=== PATIENT | male | born 1995 | race Caucasian/White ===

== ENCOUNTER 2018-11-04 08:25 | Emergency (ER) | payer OTHER, MEDICAID ==
[~2018-11-04] VITALS: Ht 177.8 cm; Wt 68.0 kg
[2018-11-04 08:25] VITALS: BP 108/72
--- NOTE | 2018-11-04 08:25 | NUR ---
ED Nurse Note: Pt came in due to seizure activity x 30 sec. Pt is under police custody and per uniform patrol police officer the pt is already in the station when he started to shake. No head trauma or LOC and police gradually brought pt on the ground for safety. Pt AAO x2, follows command with no respiratory distress. VSS. Seizure precautions are implemented (See Interventions).
[2018-11-04] MEDS ORDERED: LORazepam Inj 2mg/ml 1ml IV ONE (08:30)
--- NOTE | 2018-11-04 08:30 | NUR ---
ED Nurse Note: [employer] at the bed side.
--- NOTE | 2018-11-04 08:39 | Emergency Room Report ---
History of Present Illness General Chief Complaint: Seizure Source: Patient, Law Enforcement Present Illness HPI The patient is brought in by EMS after alleged seizure. Apparently he told police as he was being booked that he felt a seizure coming on. He slumped to the ground and had 10-15 seconds of decreased responsiveness. He returned to full orientation after that. There was no incontinence. There was no head trauma. The patient has a history of seizures and is supposed be taking Dilantin. He's been nauseated. He also is supposed be withdrawing from Klonopin and opiate use. He claims to be on Suboxone. He states that his last seizure was October 07. He claims he was hospitalized at that time at [facility] at [place]. H/O bipolar disorder - apparently not compliant with medications. He denies suicidal ideation. Patient denies fevers, chills, diarrhea, chest pain, abdominal pain. He has generalized body aches when he is withdrawing from the opiates. He is arrested for outstanding warrants, for sleeping in a car not belonging to him and possibly having bank cards not belonging to him. Allergies: Coded Allergies: AMOXICILLIN (Verified Allergy, Unknown, 11/04/18) PENICILLINS (Verified Allergy, Unknown, 11/04/18) Patient History Past Medical History: see triage record Social History: Reports: drug use; Denies: alcohol use Social History Narrative patient was in a car Reviewed Nursing Documentation: PMH: Agreed; PSxH: Agreed Nursing Documentation-PMH History Of Psychiatric Problem: Yes - Bipolar disorder Hx Seizures: Yes Review of Systems All Other Systems: negative except mentioned in HPI Physical Exam Vital Signs Date Time Temp Pulse Resp B/P (MAP) Pulse Ox O2 Delivery O2 Flow Rate FiO2 11/04/18 08:15 98.1 76 18 129/78 100 Room Air Sp02 EP Interpretation: reviewed, normal General Appearance: well appearing, no apparent distress, GCS 15, other - dishevelled Head: normocephalic, atraumatic Eyes: bilateral eye PERRL, bilateral eye EOMI, bilateral eye Scleral Injection ENT: moist mucus membranes - no lingual trauma, gingival inflammation Neck: supple, no bony tend Respiratory: lungs clear, normal breath sounds Cardiovascular #1: regular rate, rhythm Cardiovascular #2: 2+ radial (R) Gastrointestinal: normal inspection, normal bowel sounds, non tender, no mass, non-distended, scaphoid Musculoskeletal: back normal, normal range of motion, other - knee tenderness Neurologic: alert, medical data analyst III-XII nml as tested, motor strength/tone normal, DTRs symmetric, sensory intact, cerebellar normal, oriented - X2 Psychiatric: no suicidal/homicidal ideation, depressed affect Skin: warm/dry, other - dishevelled, abrasions - Patella bilaterally Medical Decision Making Diagnostic Impression: Primary Impression: Seizure-like activity Additional Impressions: Non compliance with medical treatment Substance abuse History of seizures ER Course Patient presents presents with alleged seizure. By description it sounds like probable pseudoseizure or near syncope. Evaluation will be with EKG and labs including Dilantin level. The patient will be given IV hydration and a dose of Ativan or waiting for results to come back. EKG without injury. Slightly elevated white count. Slightly elevated BUN. Slightly elevated CPK. Dilantin level none detected. The patient did not provide urine. Dilantin 500 mg was given IV and 400 mg by mouth. The patient was offered Zofran and Tylenol both of which she declined. He requested something for his gums. This is lidocaine was applied topically. No further seizure-like activity was observed. The patient was ambulatory and although complaining of discomfort was calm and resting. Patient stable for incarceration. Laboratory Tests Test 11/04/18 08:32 White Blood Count 11.1 K/UL (4.8-10.8) H Red Blood Count 4.66 M/UL (4.70-6.10) L Hemoglobin 14.8 G/DL (14.2-18.0) Hematocrit 44.3 % (42.0-52.0) Mean Corpuscular Volume 95 FL (80-99) Mean Corpuscular Hemoglobin 31.6 PG (27.0-31.0) H Mean Corpuscular Hemoglobin Concent 33.3 G/DL (32.0-36.0) Red Cell Distribution Width 12.4 % (11.6-14.8) Platelet Count 319 K/UL (150-450) Mean Platelet Volume 5.7 FL (6.5-10.1) L Neutrophils (%) (Auto) 62.5 % (45.0-75.0) Lymphocytes (%) (Auto) 26.3 % (20.0-45.0) Monocytes (%) (Auto) 8.2 % (1.0-10.0) Eosinophils (%) (Auto) 2.2 % (0.0-3.0) Basophils (%) (Auto) 0.9 % (0.0-2.0) Sodium Level 144 MMOL/L (136-145) Potassium Level 4.2 MMOL/L (3.5-5.1) Chloride Level 106 MMOL/L (98-107) Carbon Dioxide Level 28 MMOL/L (21-32) Anion Gap 10 mmol/L (5-15) Blood Urea Nitrogen 29 mg/dL (7-18) H Creatinine 1.0 MG/DL (0.55-1.30) Estimate Glomerular Filtration Rate > 60 mL/min (>60) Glucose Level 101 MG/DL (74-106) Calcium Level 9.4 MG/DL (8.5-10.1) Total Bilirubin 0.5 MG/DL (0.2-1.0) Aspartate Amino Transferase (AST) 78 U/L (15-37) H Alanine Aminotransferase (ALT) 140 U/L (12-78) H Alkaline Phosphatase 84 U/L (46-116) Total Creatine Kinase 525 U/L (26-308) H Total Protein 8.1 G/DL (6.4-8.2) Albumin 4.5 G/DL (3.4-5.0) Globulin 3.6 g/dL Albumin/Globulin Ratio 1.2 (1.0-2.7) Acetaminophen Level < 2 MCG/ML (10-30) L Phenytoin (Dilantin) Level < 0.5 ug/mL (10-20) L Serum Alcohol < 3 mg/dL EKG Diagnostic Results Rate: normal Rhythm: NSR ST Segments: no acute changes - R axis Rhythm Strip Diag. Results EP Interpretation: yes Rhythm: NSR, no PVC's, no ectopy Last Vital Signs Date Time Temp Pulse Resp B/P (MAP) Pulse Ox O2 Delivery O2 Flow Rate FiO2 11/04/18 10:02 98.4 75 13 109/71 98 Room Air Status: improved Disposition: D/C TO LAW ENFORCEMENT IN CUST Condition: Improved Scripts Ondansetron Odt* (ZOFRAN ODT*) 4 Mg Tab.rapdis 4 MG BC EVERY 8 HOURS, #6 TAB 1 Refill Prov: Chilo Couch MD 11/04/18 Acetaminophen (Tylenol) 325 Mg Tablet 650 MG ORAL Q6H PRN for Prn Pain/Headache/Temp > 101, #16 TAB 0 Refills Prov: Chilo Couch MD 11/04/18 Hydroxyzine Pamoate (VISTARIL) 25 Mg Capsule 25 MG PO Q8HR PRN for withdrawal symptoms, #10 CAP Prov: Chilo Couch MD 11/04/18 Phenytoin Sodium Extended* (DILANTIN*) 100 Mg Capsule 300 MG ORAL BEDTIME, #30 CAP Prov: Chilo Couch MD 11/04/18 Chilo Couch MD Nov 04, 2018 08:39
[2018-11-04 08:43] LABS: BASOPHILS % (AUTO) 0.9 % (0.0-2.0); EOSINOPHILS % (AUTO) 2.2 % (0.0-3.0); HEMATOCRIT 44.3 % (42.0-52.0); HEMOGLOBIN 14.8 G/DL (14.2-18.0); LYMPHOCYTES % (AUTO) 26.3 % (20.0-45.0); MEAN CORPUSCULAR VOLUME 95 FL (80-99); MONOCYTES % (AUTO) 8.2 % (1.0-10.0); NEUTROPHILS % (AUTO) 62.5 % (45.0-75.0); PLATELET COUNT 319 K/UL (150-450); RED BLOOD COUNT 4.66 M/UL (4.70-6.10); RED CELL DISTRIBUTION WIDTH 12.4 % (11.6-14.8); WHITE BLOOD COUNT 11.1 K/UL (4.8-10.8)
--- NOTE | 2018-11-04 08:45 | NUR ---
ED Nurse Note: Blood collected and sent. Pt is unable to provide urine at this time.
[2018-11-04 09:08] LABS: ANION GAP 10 mmol/L (5-15); BLOOD UREA NITROGEN 29 mg/dL (7-18); CALCIUM 9.4 MG/DL (8.5-10.1); CARBON DIOXIDE 28 MMOL/L (21-32); CHLORIDE 106 MMOL/L (98-107); POTASSIUM 4.2 MMOL/L (3.5-5.1); SODIUM 144 MMOL/L (136-145)
[2018-11-04 09:13] LABS: ALANINE AMINOTRANSFERASE 140 U/L (12-78); ALBUMIN 4.5 G/DL (3.4-5.0); ALBUMIN/GLOBULIN RATIO 1.2 (1.0-2.7); ALKALINE PHOSPHATASE 84 U/L (46-116); ASPARTATE AMINO TRANSFERASE 78 U/L (15-37); BILIRUBIN,TOTAL 0.5 MG/DL (0.2-1.0); CREATINE KINASE 525 U/L (26-308)
[2018-11-04] MEDS ORDERED: Phenytoin 100mg cap ORAL ONE (09:15)
[2018-11-04] MEDS ORDERED: Phenytoin 500 MG in NS 110 ML IVPB STA (09:15)
--- NOTE | 2018-11-04 09:37 | NUR ---
ED Nurse Note: Dr Iza kirkpatrick for not collecting the urine sample. Pt still unable to give specimen at this time.
[2018-11-04] MEDS ORDERED: DILANTIN100 MG ORAL (09:50)
[2018-11-04] MEDS ORDERED: VISTARIL25 M1 PO (09:50)
[2018-11-04] MEDS ORDERED: TYLENOL325 MG ORAL (09:50)
[2018-11-04] MEDS ORDERED: ONDANSETRON ODT4 MG BC (09:50)
[2018-11-04] MEDS ORDERED: Lidocaine 2% Visc 15ml soln ORAL ONE (10:00)
[2018-11-04 10:02] VITALS: BP 109/71
--- NOTE | 2018-11-04 10:02 | NUR ---
ED Nurse Note: Pt cleared by ER MD for discharge. ACI/prescription given and explained to pt and verbalized understanding of teachings. All medical devices such as ID band/IV removed. Pt is AAO x4, ambulatory and left with all personal belongings. Pt is accompanied by [employer].
== END 2018-11-04 10:02 ==
LOC: EDBD 08:25 → EMR 08:54
DX: G40.909 Epilepsy, unspecified, not intractable, without status epilepticus (principal); Z91.14 Patient's other noncompliance with medication regimen; F11.10 Opioid abuse, uncomplicated; F31.9 Bipolar disorder, unspecified; Z88.0 Allergy status to penicillin
CPT/HCPCS: 36415; 80053; 80185; 82550; 82962; 85025; 96361; 96365; 96375; 99284; G0480; J1165; 80329